=== PATIENT | male | born 1945 | race Caucasian/White ===

== ENCOUNTER 2018-04-09 05:31 | Inpatient (IN) | payer MEDICARE, BC ==
[2018-04-09] MEDS ORDERED: SURGIFOAM POWDER 1 GM KIT (06:41)
[2018-04-09] MEDS ORDERED: HEPARIN 1000 UNITS/ML 10 ML INJ ×2 (06:42→06:43)
[2018-04-09] MEDS ORDERED: ACETAMINOPHEN 325 MG TAB PO (07:00)
[2018-04-09] MEDS ORDERED: NALOXONE (0.4 MG/ML) INJ IV (07:00)
[2018-04-09] MEDS ORDERED: ROCURONIUM 50 MG INJ (07:00)
[2018-04-09] MEDS ORDERED: DIPHENHYDRAMINE 25 MG CAP PO (07:00)
[2018-04-09] MEDS ORDERED: SUCCINYLCHOLINE CHLORIDE 100 MG/5 ML SYG IV (07:00)
[2018-04-09] MEDS ORDERED: HYDROmorphONE 0.5 MG/0.5 ML SYG IV (07:00)
[2018-04-09] MEDS ORDERED: LIDOCAINE 2% (SDV) 5 ML INJ (07:00)
[2018-04-09] MEDS ORDERED: BISACODYL 10 MG SUPP PR (07:00)
[2018-04-09] MEDS ORDERED: MIDAZOLAM 1 MG/ML 2 ML INJ (07:06)
[2018-04-09] MEDS: CEFAZOLIN 2 GM/50 ML (PMX) 50 ML IVPB (07:07)
[2018-04-09] MEDS ORDERED: PHENYLephrine (100 MCG/ML) 5ML SYG (07:13)
[2018-04-09] MEDS ORDERED: CA CHLORIDE 10% 10 ML SYRINGE (07:24)
[2018-04-09] MEDS: THROMBIN 20,000 UNIT VIAL ZFS ×2 (07:30→07:38)
[2018-04-09] MEDS ORDERED: LACTATED RINGER'S 1,000 ML IV* (07:30)
[2018-04-09] MEDS ORDERED: EPHEDrine SULFATE 50 MG/5 ML SYG (07:36)
[2018-04-09] MEDS: BUPIVACAINE 0.25%/EPI (SDV) 10 ML INJ (07:38)
[2018-04-09] MEDS: CEFAZOLIN 1 GM INJ (07:38)
[2018-04-09] MEDS ORDERED: DEXAMETHASONE 4 MG/ML 1 ML INJ (07:58)
[2018-04-09] MEDS ORDERED: METOCLOPRAMIDE 10 MG INJ (07:58)
[2018-04-09] MEDS ORDERED: ONDANSETRON 4 MG INJ (07:58)
[2018-04-09] MEDS ORDERED: FAMOTIDINE 20 MG INJ (07:58)
[2018-04-09] MEDS ORDERED: PROPOFOL 100 ML (09:18)
[2018-04-09] MEDS: FENTAnyl 50 MCG/ML VIAL (09:27)
[2018-04-09] MEDS: BUPIVACAINE 0.25% (MPF) 30 ML INJ (09:27)
[2018-04-09] MEDS ORDERED: MEPERIDINE 25 MG INJ IV (10:00)
[2018-04-09] MEDS ORDERED: FENTAnyl 50 MCG/ML VIAL IV (10:00)
[2018-04-09] MEDS ORDERED: ONDANSETRON 4 MG INJ IV (10:00)
[2018-04-09] MEDS ORDERED: DIPHENHYDRAMINE 50 MG INJ IV (10:00)
[2018-04-09] MEDS ORDERED: PROCHLORPERAZINE 10 MG INJ IV (10:00)
[2018-04-09] MEDS ORDERED: HYDROmorphONE 1 MG/5 ML IV SYRINGE IV ×2 (10:00)
[2018-04-09] MEDS: HYDROmorphONE 0.2 MG/ML PCA IV (10:23)
[2018-04-09] MEDS: DOCUSATE SODIUM 100 MG CAP PO ×2 (10:27→20:39)
[2018-04-09] MEDS: DIPHENHYDRAMINE 50 MG INJ IV (11:34)
[2018-04-09] MEDS: D5W-0.45 NACL + KCL 20 MEQ 1,000 ML IV ×3 (11:37→22:07)
[2018-04-09] MEDS: CEFAZOLIN 1 GM/50 ML (PMX) 50 ML IVPB ×2 (14:54→22:06)
[2018-04-09] MEDS: CEPASTAT LOZENGE MT (16:58)
[2018-04-09] MEDS: TAMSULOSIN (SR) 0.4 MG CAP PO (20:39)
[2018-04-10] MEDS: CEPASTAT LOZENGE MT ×2 (02:00→21:05)
[2018-04-10] MEDS: CEFAZOLIN 1 GM/50 ML (PMX) 50 ML IVPB (05:12)
[2018-04-10] MEDS: PANTOPRAZOLE 40 MG INJ IV (05:12)
[2018-04-10 05:31] LABS: ADD MAN DIFF? NO
[2018-04-10 05:34] LABS: BASOPHILS % 0.2 % (0.0-2.0); EOSINOPHILS % 0.2 % (0.0-7.0); HEMATOCRIT 40.1 % (42.0-52.0); HEMOGLOBIN 13.5 g/dl (14.0-18.0); LYMPHOCYTES # 1.4 10^3/ul (0.8-2.9); LYMPHOCYTES % 10.8 % (15.0-51.0); MEAN CORPUSCULAR HEMOGLOBIN 29.7 pg (29.0-33.0); MEAN CORPUSCULAR HGB CONC 33.7 g/dl (32.0-37.0); MEAN CORPUSCULAR VOLUME 88.3 fl (82.0-101.0); MEAN PLATELET VOLUME 10.9 fl (7.4-10.4); MONOCYTE # 1.1 10^3/ul (0.3-0.9); MONOCYTES % 8.9 % (0.0-11.0); NEUTROPHIL # 10.2 10^3/ul (1.6-7.5); NEUTROPHILS % 79.5 % (39.0-77.0); PLATELET COUNT 153 10^3/UL (140-415); RED BLOOD COUNT 4.54 10^6/ul (4.70-6.10); RED CELL DISTRIBUTION WIDTH 12.7 % (11.5-14.5)
[2018-04-10 05:34] LABS: WHITE BLOOD COUNT 12.8 10^3/ul (4.8-10.8)
[2018-04-10 06:08] LABS: ANION GAP 8 (5-13); BLOOD UREA NITROGEN 17 mg/dl (7-20); CALCIUM 8.9 mg/dl (8.4-10.2); CARBON DIOXIDE 29 mmol/L (21-31); CHLORIDE 104 mmol/L (97-110); GLUCOSE 153 mg/dl (70-220); SODIUM 141 mmol/L (135-144)
[2018-04-10 06:11] LABS: POTASSIUM 4.3 mmol/L (3.5-5.1)
[2018-04-10] MEDS: DOCUSATE SODIUM 100 MG CAP PO ×2 (08:48→20:58)
[2018-04-10] MEDS: D5W-0.45 NACL + KCL 20 MEQ 1,000 ML IV ×2 (09:47→19:15)
[2018-04-10] MEDS: TAMSULOSIN (SR) 0.4 MG CAP PO (20:58)
[2018-04-11] MEDS: HYDROmorphONE 0.2 MG/ML PCA IV (02:58)
[2018-04-11 05:29] LABS: ADD MAN DIFF? NO
[2018-04-11 05:35] LABS: BASOPHIL # 0.1 10^3/ul (0.0-0.1); BASOPHILS % 0.6 % (0.0-2.0); EOSINOPHILS # 0.1 10^3/ul (0.0-0.5); EOSINOPHILS % 0.8 % (0.0-7.0); HEMATOCRIT 40.9 % (42.0-52.0); HEMOGLOBIN 13.4 g/dl (14.0-18.0); LYMPHOCYTES # 1.3 10^3/ul (0.8-2.9); LYMPHOCYTES % 10.9 % (15.0-51.0); MEAN CORPUSCULAR HEMOGLOBIN 29.3 pg (29.0-33.0); MEAN CORPUSCULAR HGB CONC 32.8 g/dl (32.0-37.0); MEAN CORPUSCULAR VOLUME 89.3 fl (82.0-101.0); MEAN PLATELET VOLUME 11.2 fl (7.4-10.4); MONOCYTE # 1.3 10^3/ul (0.3-0.9); NEUTROPHILS % 76.1 % (39.0-77.0); PLATELET COUNT 146 10^3/UL (140-415); RED BLOOD COUNT 4.58 10^6/ul (4.70-6.10); RED CELL DISTRIBUTION WIDTH 12.9 % (11.5-14.5)
[2018-04-11 05:35] LABS: WHITE BLOOD COUNT 11.9 10^3/ul (4.8-10.8)
[2018-04-11 06:01] LABS: ANION GAP 8 (5-13); BLOOD UREA NITROGEN 17 mg/dl (7-20); CALCIUM 8.8 mg/dl (8.4-10.2); CARBON DIOXIDE 30 mmol/L (21-31); CHLORIDE 99 mmol/L (97-110); GLUCOSE 156 mg/dl (70-220); MAGNESIUM 1.9 mg/dl (1.7-2.5); POTASSIUM 4.4 mmol/L (3.5-5.1); SODIUM 137 mmol/L (135-144)
[2018-04-11] MEDS: PANTOPRAZOLE (EC) 40 MG TAB PO (06:28)
[2018-04-11] MEDS: D5W-0.45 NACL + KCL 20 MEQ 1,000 ML IV ×2 (08:52→18:52)
[2018-04-11] MEDS: DOCUSATE SODIUM 100 MG CAP PO ×2 (09:02→21:17)
[2018-04-11] MEDS: ONDANSETRON 4 MG INJ IV (10:29)
[2018-04-11] MEDS: HYDROCODONE/APAP (5/325) TAB PO ×3 (10:29→19:51)
[2018-04-11] MEDS: CYCLOBENZAPRINE 10 MG TAB PO (13:09)
[2018-04-11] MEDS: DIPHENHYDRAMINE 50 MG INJ IV ×2 (14:59→21:20)
[2018-04-11] MEDS: CEPASTAT LOZENGE MT (17:08)
[2018-04-11] MEDS: TAMSULOSIN (SR) 0.4 MG CAP PO (21:17)
[2018-04-12 05:31] LABS: ADD MAN DIFF? NO
[2018-04-12 05:36] LABS: BASOPHIL # 0.1 10^3/ul (0.0-0.1); BASOPHILS % 0.7 % (0.0-2.0); EOSINOPHILS # 0.2 10^3/ul (0.0-0.5); EOSINOPHILS % 2.1 % (0.0-7.0); HEMATOCRIT 42.9 % (42.0-52.0); LYMPHOCYTES # 1.5 10^3/ul (0.8-2.9); LYMPHOCYTES % 16.1 % (15.0-51.0); MEAN CORPUSCULAR HEMOGLOBIN 29.2 pg (29.0-33.0); MEAN CORPUSCULAR HGB CONC 32.6 g/dl (32.0-37.0); MEAN CORPUSCULAR VOLUME 89.6 fl (82.0-101.0); MONOCYTES % 10.7 % (0.0-11.0); NEUTROPHIL # 6.4 10^3/ul (1.6-7.5); NEUTROPHILS % 69.6 % (39.0-77.0); PLATELET COUNT 152 10^3/UL (140-415); RED BLOOD COUNT 4.79 10^6/ul (4.70-6.10); RED CELL DISTRIBUTION WIDTH 12.7 % (11.5-14.5)
[2018-04-12 05:36] LABS: WHITE BLOOD COUNT 9.2 10^3/ul (4.8-10.8)
[2018-04-12 06:28] LABS: ANION GAP 6 (5-13); BLOOD UREA NITROGEN 22 mg/dl (7-20); CALCIUM 9.2 mg/dl (8.4-10.2); CARBON DIOXIDE 34 mmol/L (21-31); CHLORIDE 99 mmol/L (97-110); CREATININE 1.03 mg/dl (0.61-1.24); GLUCOSE 129 mg/dl (70-220); POTASSIUM 4.7 mmol/L (3.5-5.1); SODIUM 139 mmol/L (135-144)
[2018-04-12] MEDS: PANTOPRAZOLE (EC) 40 MG TAB PO (06:34)
[2018-04-12] MEDS: DOCUSATE SODIUM 100 MG CAP PO (10:32)
[2018-04-12] MEDS: LACTULOSE 30ML CUP PO (10:32)
== END 2018-04-12 15:05 | disposition home or self-care (01) | DRG 517 ==
LOC: REC 05:31 → MS1 11:15
PROC: 01NB0ZZ Release Lumbar Nerve, Open Approach (ICD-10-PCS; principal; 2018-04-09 07:00)
PROC: 30253H0 (ICD-10-PCS; 2018-04-09 07:00)
DX: M48.062 Spinal stenosis, lumbar region with neurogenic claudication (principal); N40.0 Benign prostatic hyperplasia without lower urinary tract symptoms
CPT/HCPCS: 72020; 80048; 83735; 85025; 86999; 87086; 88304; 88311; 97116; 97161; 97530